=== PATIENT | female | born 2000 | race Caucasian/White ===

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

== ENCOUNTER 2018-02-05 21:56 | Emergency (ER) | payer BC, OTHER ==
[2018-02-05 22:04] VITALS: BP 134/82
[2018-02-05] MEDS ORDERED: Azithromycin TAB* 250 MG PO ONE (22:16)
--- NOTE | 2018-02-05 22:23 | UC ---
Throat Pain/Nasal Pepe HPI - HPI Summary HPI Summary: Pt presents with report of progressive sinus pressure, pnd, thick green secretions x 6 days. Pt with sore throat. Pt with cough, liklelypnd, producing green sputum. pt denies fevers, chills. pt has taken motrin/apap without relief. Pt has taken Sudafed. uses humidified air. Pt with recurrent strep throat this academic year - pt is a [employer] student. Pt took 2 left over PCN today- ? dose pts medications reviewed this visit - History of Current Complaint Chief Complaint: UCGeneralIllness Stated Complaint: SORE THROAT Time Seen by Provider: 02/05/18 21:59 Hx Obtained From: Patient Hx Last Menstrual Period: 01/27/18 Severity: Moderate Pain Intensity: 7 Pain Scale Used: 0-10 Numeric Cough: Productive - Green Associated Signs & Symptoms: Positive: Negative - Allergies/Home Medications Allergies/Adverse Reactions: Allergies Allergy/AdvReac Type Severity Reaction Status Date / Time No Known Allergies Allergy Verified 02/05/18 22:04 PMH/Surg Hx/FS Hx/Imm Hx Previously Healthy: Yes - Surgical History Surgical History: None - Family History Known Family History: Positive: None, Hypertension - Social History Occupation: Student Lives: Dormitory/Roommates Alcohol Use: Occasionally Substance Use Type: None Smoking Status (MU): Never Smoked Tobacco Have You Smoked in the Last Year: No - Immunization History Most Recent Tetanus Shot: 4 MONTHS OVERDUE Vaccination Up to Date: Yes Review of Systems Constitutional: Negative Skin: Negative Eyes: Negative ENT: Sore Throat, Sinus Congestion, Sinus Pain/Tenderness Respiratory: Cough All Other Systems Reviewed And Are Negative: Yes Physical Exam Triage Information Reviewed: Yes Appearance: Well-Appearing, No Pain Distress, Well-Nourished Vital Signs: Initial Vital Signs Temp 98.1 F 02/05/18 21:59 Pulse 67 02/05/18 21:59 Resp 14 02/05/18 21:59 BP 134/82 02/05/18 21:59 Pulse Ox 100 02/05/18 21:59 Vital Signs Reviewed: Yes Eye Exam: Normal Eyes: Positive: Conjunctiva Clear ENT Exam: Normal ENT: Positive: Hearing grossly normal, Pharynx normal, Pharyngeal erythema, Nasal congestion, TMs normal, Sinus tenderness - TM x 2 clear turbinates inflammed and boggy Thick PND uvula midline no exudate, no erythema, Other Dental Exam: Normal Neck exam: Normal Neck: Positive: Supple, Nontender, No Lymphadenopathy Respiratory Exam: Normal Respiratory: Positive: Chest non-tender, Lungs clear, Normal breath sounds, No respiratory distress, No accessory muscle use Cardiovascular Exam: Normal Cardiovascular: Positive: RRR, No Murmur Abdominal Exam: Normal Abdomen Description: Positive: Nontender, No Organomegaly, Soft Bowel Sounds: Positive: Present Musculoskeletal Exam: Normal Musculoskeletal: Positive: Strength Intact Neurological Exam: Normal Neurological: Positive: Alert Psychological Exam: Normal Psychological: Positive: Normal Response To Family Skin Exam: Normal Throat Pain/Nasal Course/Dx - Course Course Of Treatment: Pt with sinus congestion, thick green sputum, pnd and sore throat. pt with + strep here. pt with recurrent strep - suspicious pt is colonized strep. today's exam c/w sinusitis. Will Rx zithromax. flonase. ENT referral - pt request [facility]. secretion precaution. antihistamine. Pt - Differential Dx/Diagnosis Provider Diagnoses: sinusitis Discharge - Sign-Out/Discharge Documenting (check all that apply): Discharge/Admit/Transfer - Discharge Plan Condition: Stable Disposition: HOME Prescriptions: Azithromycin TAB* [Zithromax TAB (Z-MERLYN) 250 mg #6 tabs] 500 mg PO DAILY #12 tab Fluticasone NASAL SPRAY 50MCG* [Flonase NASAL SPRAY 50MCG*] 2 spray BOTH NARES DAILY #1 btl Patient Education Materials: Sinusitis (ED), Strep Throat (ED) Referrals: Rubens Corbett MD [Medical Doctor] - Additional Instructions: - Okay to alternate ibuprofen (Advil, Motrin) and Tylenol every 3 hours for pain. Take with food. Do NOT take for more than 4-5 days - Okay to gargle and spit every 4 hours as needed for pain - Stay well hydrated - frequent sips of cold fluids will be soothing to your throat (popsicles, jello, ice cream, ice water). Avoid excess caffeine until your symptoms have resolved. - Do not share eating, drinking utensils. Throw out your toothbrush when your symptoms resolved -Throat infections are spread by oral secretions - do not share eating or drinking utensils until you symptoms are resolved. Clean items that may get your secretions such as cell phones, ipads, computer mouse, television remotes -Take anitbiotics as prescribed until gone - You have been given a referral to an ENT provider to further discuss your recurrent strep throat and possibility of definitive treatment. - humidifiy the air where you sleep - use nasal spray as instructed - continue to take decongestant as previous - okay to take an allergy medicine such as Olya, Claritin, or Zyrtec - Contact your doctor to arrange a follow-up appointment as needed - Billing Disposition and Condition Condition: STABLE Disposition: HOME
== END 2018-02-05 22:26 | disposition home or self-care (01) ==
LOC: UCCORT 21:56
DX: J32.9 Chronic sinusitis, unspecified (principal)
CPT/HCPCS: 87651; 99212; A9270-GY; G0463